=== PATIENT | female | born 1950 | race Caucasian/White ===

== ENCOUNTER 2023-06-16 08:39 | Outpatient (CLI) | payer MEDICARE, MEDICAID, SELFPAY ==
--- NOTE | 2023-06-16 10:04 | P.ANES_ITS ---
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
--- NOTE | 2023-06-16 10:23 | W.ANESCHARGE ---
Anesthesia Charges Start Date/Time Anesthesia Start Date: 06/16/23 Anesthesia Start Time: 09:16 Stop Date/Time Anesthesia Stop Date: 06/16/23 Anesthesia Stop Time: 10:02 Summary Extremes of Age - Over 70 or under 1: MDA
== END 2023-06-16 08:40 | disposition home or self-care (01) ==
PROVIDERS: PCP Family Medicine; Visit Provider Internal Medicine Gastroenterology
DX: C18.9 Malignant neoplasm of colon, unspecified (principal); Z15.09 Genetic susceptibility to other malignant neoplasm; Z85.00 Personal history of malignant neoplasm of unspecified digestive organ; K62.1 Rectal polyp; K64.8 Other hemorrhoids; Z85.038 Personal history of other malignant neoplasm of large intestine; Z98.0 Intestinal bypass and anastomosis status; Z98.890 Other specified postprocedural states
CPT/HCPCS: 00813; 43235; 45380; 45385; 99100; J2704; J3490

== ENCOUNTER 2023-10-15 10:59 | Emergency (ER) | payer MEDICARE, MEDICAID, SELFPAY ==
[2023-10-15 11:01] VITALS: BP 110/72; PULSE 107; RESP 24; TEMP 37.3; O2SAT 96; BMI 23.2
--- NOTE | 2023-10-15 11:38 | XR_ITS ---
INDICATION: BACK PAIN, HISTORY OF CANCER. COMPARISON: NONE. TECHNIQUE: THREE VIEWS LUMBAR SPINE. FINDINGS: CALCIFICATIONS ARE PRESENT WITHIN THE AORTA. POSTOP CHANGES TO THE SOFT TISSUES. NO VERTEBRAL BODY COMPRESSION FRACTURE. DEGENERATE FACET ARTHROPATHY LOWER LUMBAR SPINE WITHOUT SPONDYLOLISTHESIS. NO SUSPICIOUS LESION. DISC SPACES ARE RELATIVELY MAINTAINED. IMPRESSION: NO SUSPICIOUS FINDINGS. NO FRACTURE DEFORMITY. DEGENERATE FACET ARTHROPATHY.
--- NOTE | 2023-10-15 11:42 | ED_ITS ---
HPI - Back Pain/Injury General Date Seen: 10/15/23 Chief Complaint: Back Injury/Pain Stated Complaint: Back spasms Time Seen by Provider: 10/15/23 11:02 Source: patient Mode of arrival: ambulatory Limitations: no limitations History of Present Illness HPI Narrative: Patient is a 73-year-old female presenting to emergency department for low back pain. She states the pain started suddenly last night while she is laying in bed. She is not remember any injuries to the back or any recent heavy lifting or twisting. 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 She has a history of breast and colon cancer both have been treated successfully with no metastasis. The breast cancer was last year and she still on chemo though for preventative means. No previous back pain like this before she states. Says the pain feels like it starts in her mid back and radiates to her bilateral hips. Does not radiate down her legs at all. She denies any associated numbness or weakness. Denies saddle anesthesia, loss of bowel or bladder control, urinary retention. Has not had any fevers. Related Data Home Medications Medication Instructions Recorded Confirmed albuterol sulfate 90 mcg/actuation 1 - 2 puff inhalation 10/15/23 aerosol inhaler (Ventolin HFA) alendronate 70 mg tablet 70 mg PO 10/15/23 amlodipine 5 mg tablet 5 mg PO DAILY 10/15/23 10/15/23 apixaban 5 mg tablet (Eliquis) 5 mg PO BID 10/15/23 10/15/23 atorvastatin 40 mg tablet 40 mg PO DAILY 10/15/23 10/15/23 olanzapine 5 mg tablet 5 mg PO QPM 10/15/23 10/15/23 ondansetron 4 mg disintegrating 4 mg PO Q8H PRN nausea/vomiting 10/15/23 10/15/23 tablet ondansetron HCl 8 mg tablet 8 mg PO 3XD 10/15/23 10/15/23 potassium chloride 20 mEq 20 meq PO DAILY 10/15/23 10/15/23 tablet,extended release(part/cryst) prochlorperazine maleate 10 mg PO 10/15/23 tablet Previous Rx's Medication Instructions Recorded cyclobenzaprine 10 mg tablet 10 mg PO TID PRN muscle spasm #15 10/15/23 tabs Allergies Allergy/AdvReac Type Severity Reaction Status Date / Time No Known Drug Allergies Allergy Verified 10/15/23 11:14 Review of Systems Narrative: Pertinent systems reviewed and were negative unless stated in HPI PFSH PFS Social History Smoking Status: Current every day smoker What tobacco products do you use: cigarettes Second hand tobacco smoke exposure: No How often do you have a drink containing alcohol: never How often do you have six or more drinks on one occasion: Never AUDIT-C Alcohol total score: 0 Non-prescribed substance use: denies use Exam Narrative: Exam Narrative: Const: Well-nourished, Well-developed, in mild distress Eyes: PERRL, no conjunctival injection, and symmetrical lids HENT: Atraumatic external nose and ears. Moist mucous membranes. MSK:Extremities w/o deformity, Normal Active ROM, mildly positive right straight leg test Skin: Warm, Dry. No rashes or lesions. Neuro: Normal Muscle tone, No focal neurological deficits. Psych: Awake, Alert, & Oriented x3. Appropriate mood and affect. Const: Vital Signs, click to edit/add: Vital Signs - 24 hr 10/15/23 11:01 10/15/23 12:36 Temperature 99.1 F Pulse Rate [Pulse Oximeter] 107 H 92 Respiratory Rate 24 Blood Pressure [Le ft Upper Arm] 110/72 126/64 Pulse Oximetry 96 94 Oxygen Delivery Me thod Room Air Room Air Course Vital Signs Vital signs: Initial Vital Signs Temperature 99.1 F 10/15/23 11:01 Temperature Source Temporal Artery Scan 10/15/23 11:01 Pulse Rate 107 H 10/15/23 11:01 Respiratory Rate 10/15/23 11:01 Blood Pressure 110/72 10/15/23 11:01 Blood Pressure Mean 84 10/15/23 11:01 Blood Pressure Position Sitting 10/15/23 11:01 Pulse Oximetry 96 10/15/23 11:01 Oxygen Delivery Method Room Air 10/15/23 11:01 Vital Signs Temperature 99.1 F 10/15/23 11:01 Pulse Rate 107 H 10/15/23 11:01 Respiratory Rate 24 10/15/23 11:01 Blood Pressure 110/72 10/15/23 11:01 Pulse Oximetry 96 10/15/23 11:01 Oxygen Delivery Method Room Air 10/15/23 11:01 Temperature 99.1 F 10/15/23 11:01 Pulse Rate 92 10/15/23 12:36 Respiratory Rate 24 10/15/23 11:01 Blood Pressure 126/64 10/15/23 12:36 Pulse Oximetry 94 10/15/23 12:36 Oxygen Delivery Method Room Air 10/15/23 12:36 Medications Administered Medications: Discontinued Medications Generic Name Dose Route Start Last Admin Trade Name Amberly PRN Reason Stop Dose Admin Cyclobenzaprine HCl 10 mg 10/15/23 11:39 10/15/23 11:50 Cyclobenzaprine Hcl 10 Mg Tablet PO 10/15/23 11:40 10 mg ONCE ONE Administration Ketorolac Tromethamine 30 mg 10/15/23 11:39 10/15/23 11:50 Ketorolac 30 Mg/Ml Inj IM 10/15/23 11:40 30 mg ONCE ONE Administration MDM - Back Pain/Injury MDM Narrative Medical decision making narrative: Patient is a 73-year-old female presenting for back pain. His symptoms seem most likely to be related to a muscle strain with a history of cancer there is some concern for pathologic fracture. This seems unlikely but I will do an x- ray to make sure. She was given Toradol for pain along with Flexeril. After medication she says the pain has gone away completely and she feels wonderful would like to go home. I explained to her that the official x-ray read is not back yet. Told I do not see any obvious fractures but cannot definitively rule anything out until the Obed comes back. She states she understands. Shows looks well and I believe it is okay to discharge her home and I will inform her of the results of the x-ray if there are any concerning findings. She is agreeable to this plan. Will prescribe her Flexeril. X-rays returned after patient left showing no acute abnormalities. Imaging Data Lumbar spine x-ray: Radiologist's impression: NO SUSPICIOUS FINDINGS. NO FRACTURE DEFORMITY. DEGENERATE FACET ARTHROPATHY. Discharge Plan Discharge Clinical Impression: Strain of lumbar region Qualifiers: Encounter type: initial encounter Qualified Code(s): S39.012A - Strain of muscle, fascia and tendon of lower back, initial encounter Patient Disposition: Home, Self-Care Condition: Improved Instructions: Lower Back Exercises (ED) Additional Instructions: Take Flexeril and ibuprofen for pain. Pain persist you continue to need ibuprofen for multiple days follow-up with your primary care provider. Return to emergency department for new worsening symptoms Prescriptions: New cyclobenzaprine 10 mg tablet 10 mg PO TID PRN (Reason: muscle spasm) Qty: 15 0RF No Action atorvastatin 40 mg tablet 40 mg PO DAILY ondansetron HCl 8 mg tablet 8 mg PO 3XD alendronate 70 mg tablet 70 mg PO olanzapine 5 mg tablet 5 mg PO QPM amlodipine 5 mg tablet 5 mg PO DAILY prochlorperazine maleate 10 mg tablet PO potassium chloride 20 mEq tablet,ER particles/crystals 20 meq PO DAILY albuterol sulfate [Ventolin HFA] 90 mcg/actuation HFA aerosol inhaler 1 - 2 puff INHALATION ondansetron 4 mg tablet,disintegrating 4 mg PO Q8H PRN (Reason: nausea/vomiting) Eliquis 5 mg tablet 5 mg PO BID Follow Up/Referrals: Junior Carlton MD [Primary Care Provider] - Stand Alone Forms: [employer] Info Instructions
[2023-10-15] MEDS: KETOROLAC 30 MG/ML inj IM (11:50)
[2023-10-15] MEDS: CYCLOBENZAPRINE HCL 10 MG TABLET PO (11:50)
[2023-10-15 12:36] VITALS: BP 126/64; PULSE 92; O2SAT 94
== END 2023-10-15 12:38 | disposition home or self-care (01) ==
PROVIDERS: Emergency Provider Student in an Organized Health Care Education/Training Program; PCP Family Medicine
DX: S39.012A Strain of muscle, fascia and tendon of lower back, initial encounter (principal)
CPT/HCPCS: 72100; 96372; 99282; 99283; A9270; J1885

== ENCOUNTER 2024-06-04 09:13 | Outpatient (CLI) | payer MEDICARE, MEDICAID, SELFPAY ==
--- OUTSIDE RECORDS SUMMARY | 2024-06-04 09:17 | XMS_ITS | Encounter Summary ---
Author Organization [facility] Address [address] [place] [address] Care Team Providers Care Compounding Assistant Name Role Phone Unavailable Primary Care Provider Unavailabl e Encounter Details Date Type Department Care Team (Latest Contact Info) Description 05/17/2024 7:20 AM CDT - 05/17/2024 11:59 PM CDT Hospital Encounter Department of Laboratory Medicine in [place], [place] [address] [place] [address] [phone] Guicho Collier M.B., B.Ch. 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 Hard 05/25/2023 Exercise Vital Sign Answer Date Recorde d On average, how many days pe r week do you engage in moderate to strenuous exercise (like a brisk walk)? 2 days 05/25/2023 On average, how many minutes do you engage in exercise at this level? 10 min 05/25/2023 Hunger Vital Sign Answer Date Recorded Within the past 12 months, y ou worried that your food would run out before you got the money to buy more. Never true 05/25/20 Within the past 12 months, t he food you bought just didn't last and you didn't have money to get more. Never true 05/25/2023 PRAPARE - Transportation Answer Date Re corded In the past 12 months, has l ack of transportation kept you from medical appointments or from getting medications? No 05/03 In the past 12 months, has l ack of transportation kept you from meetings, work, or from getting things needed for daily living? No 05/25/2023 Nutrition Answer Date Recorded On average, how many serving s of fruits and vegetables do you eat per day (serving size is equal to 1 cup or approximately the size of a tennis ball)? 0-2 05/25/2023 Dental Answer Date Recorded Dental: Regular Dentist No 05/25/20 Employment Answer Date Recorded Employment status Retired 05/25/2023 Housing Stability Answer Date Recorded What is your living situation today? I have a [facility] place to live 05/25/2023 Education Answer Date Recorded What is the highest level of school you have completed or the highest degree you have received? GED or equivalent 05/2022 Sex and Gender Information Value Date Recorded Sex Assigned at Female 08/09/2022 8:38 AM TELLER MANAGER Gender Identity Female 08/09/2022 8:38 AM TELLER MANAGER Sexual Orientation Straight 08/09/2022 8: 38 AM TELLER MANAGER documented as of this encounter Medications at Time of Discharge Medication Sig Dispensed Refills Start Date End Date albuterol 90 mcg/actuation inhaler Inhale 1-2 puffs 4 (four) times a day as needed for wheezing or shortness of breath. 03/26/2023 alendronate (FOSAMAX) 70 mg tablet Take 70 mg by mouth once a week. On Mondays07/02/2022 amLODIPine (NORVASC) 5 mg tablet Take 5 mg by mouth daily. 07/02/2022 anastrozole (Arimidex) 1 mg tabletIndications:Malign ant Neoplasm Of Overlapping Sites Of Right Female Breast (HCC),Medication Therapy Care Home Not Anticoagulant TAKE ONE TABLET BY MOUTH ONCE DAILY (SWALLOW WHOLE WITH A DRINK OF WATER) 90 tablet 1 05/16/2024 apixaban (ELIQUIS) 5 mg tablet Take 5 mg by mouth 2 (two) times a day. 06/12/2022 atorvastatin (LIPITOR) 40 mg tablet Take 40 mg by mouth at bedtime. 05/14/2022 OLANZapine (ZyPREXA) 5 mg tabletIndications:Malign ant Neoplasm Of Overlapping Sites Of Right Female Breast (HCC) Take 1 tablet (5 mg total) by mouth at bedtime as needed (nausea, vomiting). May take dose early if needed. 30 tablet 3 10/05/2023 10/04/2024 ondansetron (ZOFRAN) 8 mg tabletIndications:Malign ant Neoplasm Of Overlapping Sites Of Right Female Breast (HCC) Take 1 tablet (8 mg total) by mouth every 8 (eight) hours as needed for nausea or vomiting (unrelieved by prochlorperazine). 30 tablet 3 10/05/2023 10/04/2024 ondansetron ODT (ZOFRAN-ODT) 4 mg disintegrating tablet DISSOLVE ONE TABLET BY MOUTH EVERY 8 HOURS NEEDED FOR NAUSEA OR VOMITING 08/05/2023 potassium chloride (KLOR-CON M/KDUR) 20 mEq ER tablet daily with breakfast. 12/20/2023 prochlorperazine (COMPAZINE) 10 mg tabletIndications:Malign ant Neoplasm Of Overlapping Sites Of Right Female Breast (HCC) Take 1 tablet (10 mg total) by mouth every 6 (six) hours as needed for nausea or vomiting. 30 tablet 3 10/05/2023 10/04/2024 documented as of this encounter Plan of Treatment Upcoming Encounters Date Type Department Care Team (Late st Contact Info) Description 08/09/2024 10:00 AM TELLER MANAGER Appointment Department of Laboratory Medicine in [address] [phone] Guicho Collier M.B., B.Ch. [facility] [place] [phone] 08/09/2024 11:00 AM TELLER MANAGER Ancillary Procedure Department of Radiology, [facility], in [place], [place] [address] [place] [phone] Guicho Collier M.B., B.Ch. [address] [place] [address] [phone] 08/09/2024 12:00 PM TELLER MANAGER Ancillary Procedure Department of Radiology in the Breast Clinic, [facility] in [place], [place] [address] [place] [phone] Guicho Collier M.B., B.Ch. [address] [place] [address] [phone] 08/16/2024 11:20 AM TELLER MANAGER Office Visit Department of Oncology in [address] [phone] Guicho Collier M.B., B.Ch. 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 Higher concentrations of biotin may be found in multivitamins, hair/nail supplements, and workout supplements. If the result does not match clinical observations, repeat testing after patient refrains from the use of supplements for at least 12 hours. ----REFERENCE VALUE---- Reference values have not been established for patients who are greater than 69 years of age ----ADDITIONAL INFORMATION---- The testing method is an electrochemiluminescence assay manufactured by [employer] and performed on the Carey system. Values obtained with different assay methods or kits may be different and cannot be used interchangeably. Test results cannot be interpreted as absolute evidence for the presence or absence of malignant disease. Blood (Blood, Venous) 05/17/2024 7:37 AM CDT 05/17/2024 7:45 AM CDT Guicho Alfonso, B.Ch. LAB BLOOD ADD-ON [facility] [address] [place] [address], [facility] [place] [address] * CBC with Differential, Blood (05/17/2024 7:37 AM CDT) Hemoglobin 13.9 11.6 - 15.0 g/dL 05/17/2024 7:49 AM CDT [facility] Hematocrit 42.2 35.5 - 44.9 % 05/17/2024 7:49 AM CDT [facility] Erythrocytes 4.59 3.92 - 5.13 x10(12)/L 05/17/2024 7:49 AM CDT [facility] MCV 91.9 78.2 - 97.9 fL 05/17/2024 7:49 AM CDT [facility] RBC Distrib Width 15.0 12.2 - 16.1 % 05/17/2024 7:49 AM CDT [facility] Platelet Count 281 157 - 371 x10(9)/L 05/17/2024 7:49 AM CDT [facility] Leukocytes 6.8 3.4 - 9.6 x10(9)/L 05/17/2024 7:49 AM CDT [facility] Neutrophils 3.85 1.56 - 6.45 x10(9)/L 05/17/2024 7:49 AM CDT [facility] Lymphocytes 1.98 0.95 - 3.07 x10(9)/L 05/17/2024 7:49 AM CDT [facility] Monocytes 0.68 0.26 - 0.81 x10(9)/L 05/17/2024 7:49 AM CDT [facility] Eosinophils 0.23 0.03 - 0.48 x10(9)/L 05/17/2024 7:49 AM CDT [facility] Basophils 0.06 0.01 - 0.08 x10(9)/L 05/17/2024 7:49 AM CDT [facility] Blood (Blood, Venous) 05/17/2024 7:37 AM CDT 05/17/2024 7:45 AM CDT Guicho Alfonso B.Ch. LAB BLOOD ADD-ON [facility] [address] [place] [address], [facility] MK[facility] in [place] [address] [place] [address] documented in this encounter Visit Diagnoses Diagnosis Medication Therapy Ccnp Not Anticoagulant Malignant Neoplasm Of Overlapping Sites Of Right Female Breast (HCC) Malignant Neoplasm Of Colon (HCC) documented in this encounter
--- OUTSIDE RECORDS SUMMARY | 2024-06-04 09:17 | XMS_ITS | Encounter Summary ---
Author Organization [facility] Address [address] [place] [address] Care Team Providers Care Election Watcher Name Role Phone Unavailable Primary Care Provider Unavailabl e Reason for Referral * Outpatient (Routine) - Authorized Specialty Diagnoses / Procedures Referred By Contac t Referred To Contact Oncology Diagnoses Medication Therapy [employer] Not Anticoagulant Malignant Neoplasm Of Overlapping Sites Of Right Female Breast (HCC) Malignant Neoplasm Of Colon (HCC) Dependence Nicotine Screening Mammogram Breast Cancer Guicho Collier M.B., B.Ch. [address] [place] [phone] [facility] Referral ID Status Reason Start Date Expiration Date V isits Requested Visits Authorized [id number] Authorized 05/17/2024 11/16/2025 1 1 * MRI/CAT/PET Scan (Routine) - Authorized Specialty Diagnoses / Procedures Referred By Contac t Referred To Contact Radiology Diagnoses Medication Therapy [employer] Not Anticoagulant Malignant Neoplasm Of Overlapping Sites Of Right Female Breast (HCC) Malignant Neoplasm Of Colon (HCC) Dependence Nicotine Procedures CT Abdomen Pelvis with IV Contrast Guicho Collier M.B., B.Ch. [address] [place] [phone] [facility] Referral ID Status Reason Start Date Expiration Date V isits Requested Visits Authorized [id number] Authorized 05/17/2024 05/17/2025 1 1 * MRI/CAT/PET Scan (Routine) - Authorized Specialty Diagnoses / Procedures Referred By Ted t Referred To Contact Radiology Diagnoses Medication Therapy [employer] Not Anticoagulant Malignant Neoplasm Of Overlapping Sites Of Right Female Breast (HCC) Malignant Neoplasm Of Colon (HCC) Dependence Nicotine Procedures CT Chest with IV Contrast Guicho Collier M.B., B.Ch. [address] [place] [phone] [facility] Referral ID Status Reason Start Date Expiration Date V isits Requested Visits Authorized [id number] Authorized 05/17/2024 05/17/2025 1 1 * Outpatient (Routine) - Authorized Specialty Diagnoses / Procedures Referred By Ted tai Referred To Contact Diagnoses Medication Therapy [facility] Not Anticoagulant Malignant Neoplasm Of Overlapping Sites Of Right Female Breast (HCC) Malignant Neoplasm Of Colon (HCC) Dependence Nicotine Screening Mammogram Breast Cancer Procedures BI Breast Screening Bilateral with Tomosynthesis Guicho Collier M.B., B.Ch. [address] [place] [phone] [facility] Referral ID Status Reason Start Date Expiration Date V isits Requested Visits Authorized [id number] Authorized 05/17/2024 05/17/2025 1 1 Reason for Visit * Reason Comments Breast Cancer Fu, lab * Outpatient (Routine) - Closed Specialty Diagnoses / Procedures Referred By Ted tai Referred To Contact Oncology Diagnoses Medication Therapy [employer] Access[employer] Not Anticoagulant Malignant Neoplasm Of Overlapping Sites Of Right Female Breast (HCC) Malignant Neoplasm Of Colon (HCC) Guicho Collier M.B., B.Ch. [address] [place] [phone] [facility] Referral ID Status Reason Start Date Expiration Date Visits Re quested Visits Authorized [id number] Closed 02/06/2024 08/07/2025 1 1 Encounter Details Date Type Department Care Team (Late st Contact Info) Description 05/17/2024 8:20 AM CDT Office Visit Department of Oncology in [place], [place] [address] [place] [phone] Guicho Collier M.B., B.Ch. [address] [place] [phone] Malignant Neoplasm Of Colon (HCC) (Primary Dx); Medication Therapy [facility] Not Anticoagulant; Malignant Neoplasm Of Overlapping Sites Of Right Female Breast (HCC); Nicotine Dependence ; Screening Mammogram Breast Cancer; Cancer Colon Nonpolyposis Hereditary Family History; High Risk Medication Social History Tobacco Use Types Packs/Day Years Used Date Smoking Tobacco: Every Day Cigarettes 0.3 0.8 Started: 2023 Passive Smoke Exposure: Current Smokeless Tobacco: Never Tobacco Cessation:Ready to Q uit: Not Asked; Counseling Given: Not Answered Comments:Son in law smokes outside, around 6 daily Alcohol Use Standard Drinks/Week [...] money to buy more. Never true 05/25/20 23 Within the past 12 months, t he [...] your living situation today? I have a [facility] [place] place to live 05/25/2023 Education Answer Date Recorded What is the highest level of school you have completed or the highest degree you have received? GED or equivalent 05/2022 Sex and Gender Information Value Date Recorded Sex Assigned at Female 08/09/2022 8:38 AM ELEPHANT KEEPER Gender Identity Female 08/09/2022 8:38 AM ELEPHANT KEEPER Sexual Orientation Straight 08/09/2022 8: 38 AM ELEPHANT KEEPER documented as of this encounter Last Filed Vital Signs Vital Sign Reading Time Taken Comments Blood Pressure 130/71 05/17/2024 7:55 AM CDT Pulse 78 05/17/2024 7:55 AM CDT Temperature 36.3 ??C (97.3 ??F) 05/17/2024 7:55 AM CD T Respiratory Rate 18 05/17/2024 7:55 AM CDT Oxygen Saturation 96% 05/17/2024 7:55 AM CDT ra Inhaled Oxygen Concentration - - Weight 54.9 kg (121 lb 0.5 oz) 05/17/2024 7:55 A M CDT Height - - Body Mass Index 20.76 08/12/2023 10:45 PM ELEPHANT KEEPER documented in this encounter Patient Instructions * Patient Instructions* Guicho Collier M.B., B.Ch. - 05/17/2024 8:20 AM CDT See you back in three months. We will obtain a mammogram and CT next visit. Colonoscopy at [facility] in June documented in this encounter Progress Notes * Guicho Collier M.B., B.Ch. - 05/17/2024 8:20 AM CDT ONCOLOGY PROGRESS NOTE Primary Care Provider Dr. Junior Carlton, at [facility] Oncologist Li Sumner., B.Ch. Reason for Visit Valentine Hernandez is a 74 y.o. 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 Tobacco smoking, half a pack per day for 35 years. Family history positive for sister with lung cancer, mother with pancreatic cancer, and father withpancreatic cancer. Oncology History 06/22/2021 Admission at [facility] in [place] with intermittent abdominal pain and anorexia. CT abdomen and pelvis at [facility] showed distal ileum wall thickening consistent with nonspecific terminal ileitis, small bowel proximal to terminal ileum is fluid filled but not dilated which may represent ileus or early small bowel obstruction. Colonoscopy was ordered, however the patient was unable to complete prep and became ill, and presented to ER. She was found to be obstructed, and had an urgent surgical intervention. 06/28/2021 Right hemicolectomy. Surgery was complicated with small bowel perforation. Pathology showed invasive colonic adenocarcinoma, greatest dimension 6 cm, high-grade, margins were negative, LVIinvasion identified, PMI identified, lymph nodes were positive for adenocarcinoma. Pathological stage pT3pN1 Mx consistent with stage III disease. MMR proficient by IHC. 08/10/2021 C1 oxaliplatin. Patient experienced grade 2 hypersensitivity reaction versus esophageal spasm that resolved with diphenhydramine, methylprednisolone, and lorazepam. 08/11/2021 CEA at 6.6 09/03/2021 C2 oxaliplatin. Patient experienced grade 2 hypersensitivity reaction versus esophageal spasm that resolved with diphenhydramine and lorazepam. 09/21/2021 CEA 21.7. Reported started smoking. 09/24/2021 C3D1 capecitabine. Oxaliplatin was discontinued. 10/04/2021 CEA 30.8. 10/17/2021 C4 capecitabine 11/02/2021 CEA 17.8. 11/05/2021 through 12/17/2021 C5 through C7 capecitabine 12/25/2021 CEA at 12.7 01/02/2022 CT chest abdomen pelvis showed stable bilateral pulmonary nodules and focal nodular thickening in the splenic flexure measuring 1.8 x 1.6 cm, recommended correlation with colonoscopy. 01/07/2022 C8 capecitabine 03/29/2022 Colonoscopy showed two polyps in rectum and one polyp in colon, biopsied. Pathology reported tubular adenoma in 3 polyps, and one was greater in one centimeter in size. 04/24/2022 Patient's last Oncology visit at [place], [place]. CBC showed osbqtyhzbn30.1, platelets 347, WBC 8.9. CMP unremarkable. CEA 14.1. 09/13/[address] chest abdomen and pelvis showed emphysematous changes throughout both lungs. No pulmonary mass or nodules. CT is otherwise unremarkable. 04/30/2023 CEA at 16.3 05/02/2023 CT chest abdomen and pelvis with IV contrast for surveillance on colon cancer incidentally revealed an enhancing irregular shaped nodular density in the posterior lateral right mid breast up to 2.9 cm, suspicious for right breast cancer; no metastatic disease in chest, abdomen, or pelvis, however there are multiple bilateral subcentimeter noncalcified pulmonary nodules that are indeterminate and stable from before. 05/06/2023 Diagnostic mammogram bilaterally showed irregularly marginated high density mass within the lateral right breast. US showed irregularly marginated vascular hypoechoic mass 9' position 4 cmfrom the nipple measuring up to 2.4 cm with extension into adjacent duct near the periareolar region with intraductal lesion; a separate ill-defined hypoechoic nodule demonstrating vascularity also demonstrated near 8' location 1 cm from the nipple; no pathologic axillary lymphadenopathy identified; left breast mammography unremarkable. 05/14/2023 US-guided needle biopsy from the 9 o'clock lesion, and pathology showed invasive mammarycarcinoma, favor lobular carcinoma, no DCIS, no angiolymphatic invasion; ER positive strong 91-100%, CT negative, HER2 1+ by IHC, Ki67 at 17%. 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 06/16/2023 Colonoscopy (at [facility]) was performed and showed two sessile polyps in the distal rectum, they were 1-2 mm in size, and otherwise unremarkable colonoscopy; pathology reported the two rectal polyps were hyperplastic polyp, and the polyp 3 cm from the rectum showed a tubulovillous adenoma which is an advanced adenoma. EGD was performed and was unremarkable, no biopsies were obtained. 08/05/2023 Mastectomy, breast axillary tail, and removal of six lymph node including one sentinel. Pathology reported invasive lobular carcinoma, pleomorphic variant, grade 2, measuring up to 5.8 cm,all margins were negative however measures less than 1 mm to the posterior inked margin, right axillary sentinel lymph node positive for isolated tumor cells (pT3 pN0 (i+)), ER positive, 91-100%, CT negative, HER2 1+ by IHC, Ki-67 17%. Recurrence score through Oncotype Dx score is at 29. 09/10/2023 CEA at 11.9 10/09/2023 Adjuvant docetaxel 75 mg/m2 + cyclophosphamide 600 mg/m2, 21-day cycle. Completed 4 cycles on 12/18/2023. 01/01/2024 Consult with Radiation Oncologist: Agreed with adjuvant radiation therapy. 01/14/2024 Started adjuvant anastrozole 01/12/2024 Started adjuvant radiation. Received 4800 cGy over 15 fractions. Completed on 02/03/2023. Interval History Patient is presenting today for follow-up on clinical status, review labs, and discuss plan. Review of Systems Ten point review of system was reviewed today 05/17/24 and was negative, except as otherwise indicated. History Review The following portions of the patient's history were reviewed 05/17/24: allergies, social history, surgical history, current medications, family history, problem list and medical history Vital Signs Vitals: 05/17/24 0755 BP: 130/71 Pulse: 78 Resp: 18 Temp: 36.3 ??C SpO2: 96% Performance Status ECOG : 0-1 Physical Exam Constitutional Appearance: Normal appearance. She is not ill-appearing. HENT Head: Normocephalic. Nose: Nose normal. No congestion. Mouth/Throat: Mouth: Mucous membranes are moist. Pharynx: No oropharyngeal exudate. Eyes General: No scleral icterus. Pupils: Pupils are equal, round, and reactive to light. Cardiovascular Rate and Rhythm: Normal rate and regular rhythm. Pulses: Normal pulses. Pulmonary Effort: Pulmonary effort is normal. No respiratory distress. Abdominal General: Abdomen is flat. There is no distension. Palpations: There is no mass. Musculoskeletal General: No swelling. Normal range of motion. Cervical back: Normal range of motion. No rigidity. Right lower leg: No edema. Left lower leg: No edema. Skin General: Skin is warm. Capillary Refill: Capillary refill takes less than 2 seconds. Coloration: Skin is not jaundiced or pale. Neurological General: No focal deficit present. Mental Status: She is alert and oriented to person, place, and time. Psychiatric Mood and Affect: Mood normal. Behavior: Behavior normal. Laboratory Data Reviewed 05/17/24 Radiology Data Reviewed 05/17/24 Assessment and Plan Valentine Hernandez is a 74 y.o. female with clinical stage IIA invasive lobular carcinoma of the right breast, ER positive CT negative, HER2 low, on adjuvant anastrozole She presented with bowel obstruction in 06/2021, underwent right hemicolectomy, and pathology showed adenocarcinoma in the right colon, MMR proficient, pT3 pN1. She completed adjuvant chemotherapy in12/[address] chest abdomen and pelvis on 04/2023 for her colon cancer incidentally revealed a 2.9 cm lesion in the posterior lateral right breast suspicious for breast cancer. Diagnostic mammogram showed mass in the lateral right breast. US showed irregularly marginated vascular hypoechoic mass 9 o'clock position measuring up to 2.4 cm with extension into adjacent duct near the periareolar region with intraductal lesion; a separate ill-defined hypoechoic nodule demonstrating vascularity demonstrated near 8 o'clock location, no pathologic axillary lymphadenopathy identified. Biopsy was obtained from the 9' lesion, and pathology showed invasive mammary carcinoma favor lobular carcinoma, ER positive 91-100%, CT negative, HER2 1+ by IHC, Ki67 at 17%. Germline mutation genetic testing negative. She underwent right mastectomy and left lymph node removal including one sentinel on 08/05/2023, and pathology reported invasive lobular carcinoma, measuring up to 5.8 cm, all margins were negative, right axillary sentinel lymph node positive for isolated tumor cells (pT3 pN0 (i+)), ER positive, 91-100%, CT negative, HER2 1+ by IHC, Ki-67 at 17%. Recurrence score through Oncotype Dx was at 29. She completed four cycles of adjuvant docetaxel and cyclophosphamide on 12/18/2023. She started anastrozole in 12/2023. She completed adjuvant radiation on 02/04/2024. The patient is feeling well overall and does not have any new complaints. Her CBC is normal. Her CEA is high at 24. -Continue adjuvant anastrozole. Aim to complete at least 5 years through . -Monitor: Screening left mammogram annually, next due in 06/2024. Annual DEXA scan. -In regards to her colon cancer, continue surveillance: H&P and CEA every 6 months for a total of 5 years (through 11/2026). CT Chest/abdominal/pelvic every 6-12 months (category 2B for frequency<12 mo) from date of surgery for a total of 5 years (through 06/2026). Therefore continue to monitor CEA which has been elevated and previously was attributed to smoking. She had an advanced adenoma (one rectal polyp was >1 cm) thus repeat colonoscopy within a year was indicated, and colonoscopy is scheduled at [facility] [facility] in 06/[address]24. O[address] chest abdomen and pelvis annually, and ordered for the next visit. -In regards to cullen syndrome, Colonoscopy every 1-2 years, Screening for endometrial cancer: Endometrial biopsy yearly, Risk-reducing surgery (hysterectomy and BSO). Consider UA annually starting age 30-35. Daily aspirin 81 mg daily. Age-appropriate cancer screening -Patient was strongly advised to quit smoking. I have discussed risk reduction surgery with the patient today, but she would like to defer that decision. -Follow up: 3 months with repeat mammogram, CEA, and CT. Advance Care Planning Health Care Power of [employer] St[employer] Machine Operator: Discussed with Valentine Hernandez 2. Treatment Goals: Curative 3. Additional lines of Therapy: Radiation and hormone therapy 4. Prognosis: Median Survival: Hopefully comparable to general population 5. Patient Personal Goals and understanding of illness: Improve survival maintain quality of life Patient Education No apparent learning barriers were identified. Explained diagnosis and treatment plan; patient expressed understanding of the content and agreement with plan. Patient was encouraged to keep us informed in case they develop any new symptoms in the interval period. Administrative and Billing I personally spent more than 25 minutes in care of the patient today. This time includes more than 50% both face to face and non-face to face time. WAYNE Sumner documented in this encounter Plan of Treatment Upcoming Encounters Date Type Department Care Team (Late st Contact Info) Description 08/09/2024 10:00 AM ELEPHANT KEEPER Appointment Department of Laboratory Medicine in [address] [phone] Guicho Collier M.B., B.Ch. [address] [place] [phone] 08/09/2024 11:00 AM ELEPHANT KEEPER Ancillary Procedure Department of Radiology, [facility], in [place], [place] [address] [facility] [address], [place] [phone] Guicho Collier M.B., B.Ch. [address] [place] [phone] 08/09/2024 12:00 PM ELEPHANT KEEPER Ancillary Procedure Department of Radiology in the Breast Clinic, [facility] in [address] [phone] Guicho Collier M.B., B.Ch. [address] [place] [phone] 08/16/2024 11:20 AM ELEPHANT KEEPER Office Visit Department of Oncology in [address] [phone] Guicho Collier M.B., B.Ch. [address] [place] [phone] Scheduled Orders Name Type Priority Associated Diagnoses Order Schedule BI Breast Screening Bilateral with Tomosynthesis Imaging RAD - Routine (most inpatients and all outpatients) Medication Therapy [employer] Accessory Installer Not Anticoagulant Malignant Neoplasm Of Overlapping Sites Of Right Female Breast (HCC) Malignant Neoplasm Of Colon (HCC) Nicotine Dependence Screening Mammogram Breast Cancer Expected: 08/16/2024, Expires: 08/16/2025 CT Chest with IV Contrast Imaging RAD - Routine (most inpatients and all outpatients) Medication Therapy [facility] Not Anticoagulant Malignant Neoplasm Of Overlapping Sites Of Right Female Breast (HCC) Malignant Neoplasm Of Colon (HCC) Nicotine Dependence Expected: 08/16/2024, Expires: 08/16/2025 CT Abdomen Pelvis with IV Contrast Imaging RAD - Routine (most inpatients and all outpatients) Medication Therapy [facility] Not Anticoagulant Malignant Neoplasm Of Overlapping Sites Of Right Female Breast (HCC) Malignant Neoplasm Of Colon (HCC) Nicotine Dependence Expected: 08/16/2024, Expires: 08/16/2025 Creatinine with Estimated GFR Lab Routine Medication Therapy [employer] Not Anticoagulant Malignant Neoplasm Of Overlapping Sites Of Right Female Breast (HCC) Malignant Neoplasm Of Colon (HCC) Nicotine Dependence 1 Occurrences starting 05/17/2024 until 08/16/2025 CEA (Carcinoembryonic Antigen) Lab Routine Medication Therapy [employer] Access[employer] Install[employer] Not Anticoagulant Malignant Neoplasm Of Overlapping Sites Of Right Female Breast (HCC) Malignant Neoplasm Of Colon (HCC) Nicotine Dependence Screening Mammogram Breast Cancer Expected: 08/16/2024, Expires: 08/16/2025 Scheduled Referrals Name Type Priority Associated Diagnoses Orde r Schedule Oncology office visit (clinic) Outpatient Referral Routine Medication Therapy [facility] Not Anticoagulant Malignant Neoplasm Of Overlapping Sites Of Right Female Breast (HCC) Malignant Neoplasm Of Colon (HCC) Nicotine Dependence Screening Mammogram Breast Cancer Expected: 08/16/2024, Expires: 08/16/2025 documented as of this encounter Visit Diagnoses Diagnosis Malignant Neoplasm Of Colon (HCC)- Primary Medication Therapy Automotive 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
--- OUTSIDE RECORDS SUMMARY | 2024-06-04 09:17 | XMS_ITS ---
Author Organization [facility] Address [address] [place] [id number] Care Team Providers Care Public Relations Director Name Role Phone Unavailable Primary Care Provider Unavailabl e Active Problems Problem Noted Date Diagnosed Date Medication Therapy [facility] Not Anticoagulant 0 09/29/2023 Sepsis 08/12/2023 Genetic Susceptibility To Malignant Neoplasm Of Endometrium 06/03/2023 Overview (06/03/2023): Positive germline testing for PMS2 variant c.[id number] [id number]* Malignant Neoplasm Of Overla pping Sites Of Right Female Breast 05/16/2023 Cancer Staging:Pathologic:Stage IIB(pT3, pN0(i+)(sn), cM0, G2, ER+, MD-, HER2-) - Signed by Aj Blue MPAS, P.A.-C., M.S. on 09/17/2023 Current Oncology Plans No current plan information found. Past Plans Hematology / Oncology Treatment 1 Plan Name Start Date Discontinue Date Treatment Medications Discontinue Reason Plan Provider Cycles TC ( DOCEtaxel / cycloPHOSphamide ) 4 12/19/2023 cycloPHOSphamide (Cytoxan)cycloPHOS phamide (Cytoxan) IVPB in 250 mL (1 g vial) (Cytoxan)DOCEtaxel (Taxotere)DOCEtaxe L (Taxotere) IVPB in 250 mL (Taxotere) Therapy Complete Guicho Collier M.B., B.Ch. 4 of 4 cycles started Radiation Treatments * Plan Last Treated On Days Fractions Treated Prescribed Fraction Dose Prescribed Total Dose [id number] 02/04/2024 23 15 of 15 320 cGy 4,800 cGy Reference Point Last Treated On Elapsed Days Session Dose Total Dose [id number] 02/04/2024 23 320 cGy 4,800 cGy
--- OUTSIDE RECORDS SUMMARY | 2024-06-04 09:17 | XMS_ITS | Encounter Summary ---
Author Organization [facility] Address [address] [place] [address] Care Team Providers Care Divorce Attorney Name Role Phone Unavailable Primary Care Provider Unavailabl e Reason for Referral * Outpatient (Routine) - Authorized Specialty Diagnoses / Procedures Referred By Ted tai Referred To Contact Clinical Genomics Diagnoses Malignant Neoplasm Of Overlapping Sites Of Right Female Breast (HCC) Malignant Neoplasm Of Colon (HCC) Cancer Colon Nonpolyposis Hereditary Family History High Risk Medication Guicho Collier M.B., B.Ch. [facility] [place] [phone] [facility] Referral ID Status Reason Start Date Expiration Date V isits Requested Visits Authorized [id number] Authorized 05/18/2024 11/17/2025 1 1 Encounter Details Date Type Department Care Team (Late st Contact Info) Description 05/18/2024 Orders Only Department of Oncology in [address] [place] [phone] Guicho Collier M.B., B.Ch. [address] [place] [phone] Malignant Neoplasm Of Overlapping Sites Of Right Female Breast (HCC) (Primary Dx); Malignant Neoplasm Of Colon (HCC); Cancer Colon Nonpolyposis Hereditary Family History; High [...] your living situation today? I have a [facility] place to live 05/25/2023 Education Answer Date Recorded What is the highest level of school you have completed or the highest degree you have received? GED or equivalent 05/2022 Sex and Gender Information Value Date Recorded Sex Assigned at Female 08/09/2022 8:38 AM SENIOR TREASURY ANALYST Gender Identity Female 08/09/2022 8:38 AM SENIOR TREASURY ANALYST Sexual Orientation Straight 08/09/2022 8: 38 AM SENIOR TREASURY ANALYST documented as of this encounter Plan of Treatment Upcoming Encounters Date Type Department Care Team (Late st Contact Info) Description 08/09/2024 10:00 AM SENIOR TREASURY ANALYST Appointment Department of Laboratory Medicine in [address] [phone] Guicho Collier M.B., B.Ch. [address] [place] [phone] 08/09/2024 11:00 AM SENIOR TREASURY ANALYST Ancillary Procedure Department of Radiology, [facility], in [place], [place] [address] [facility] [address] [place] [phone] Guicho Collier M.B., B.Ch. [address] [place] [phone] 08/09/2024 12:00 PM SENIOR TREASURY ANALYST Ancillary Procedure Department of Radiology in the Breast Clinic, [facility] in [place], [place] [address] [place] [phone] Guicho Collier M.B., B.Ch. [address] [place] [phone] 08/16/2024 11:20 AM SENIOR TREASURY ANALYST Office Visit Department of Oncology in [address] [phone] Guicho Collier M.B., B.Ch. [address] [place] [phone] Scheduled Referrals Name Type Priority Associated Diagnoses Orde r Schedule Clinical Genomics - Hereditary cancer consult (clinic) Outpatient Referral Routine Malignant Neoplasm Of Overlapping Sites Of Right Female Breast (HCC) Malignant Neoplasm Of Colon (HCC) Cancer Colon Nonpolyposis Hereditary Family History High Risk Medication Expected: 05/18/2024, Expires: 08/17/2025 documented as of this encounter Visit Diagnoses Diagnosis Malignant Neoplasm Of Overlapping Sites Of Right Female Breast (HCC)- Primary Malignant Neoplasm Of Colon (HCC) Cancer Colon Nonpolyposis Hereditary Family History High Risk Medication documented in this encounter
--- OUTSIDE RECORDS SUMMARY | 2024-06-04 09:17 | XMS_ITS | Clinical Summary ---
Author Organization [facility] Address [address] [place] [address] Care Team Providers Care Procurement Representative Name Role Phone Unavailable Primary Care Provider Unavailabl e Source Comments Patient records contain information from all sites at [facility]. For routine questions regarding patient records, call [phone] during business hours, M-F 8:00 AM - 5:00 PM Central Time. Record requests for emergency care only can be directed to [phone] at any time.[facility] Allergies No known active allergies Medications Medication Sig Dispensed Refills Start Date End Date Status alendronate (FOSAMAX) 70 mg tablet Take 70 mg by mouth once a week. On Mondays 2 Active amLODIPine (NORVASC) 5 mg tablet Take 5 mg by mouth daily. 2 Active apixaban (ELIQUIS) 5 mg tablet Take 5 mg by mouth 2 (two) times a day. 2 Active atorvastatin (LIPITOR) 40 mg tablet Take 40 mg by mouth at bedtime. 2 Active albuterol 90 mcg/actuation inhaler Inhale 1-2 puffs 4 (four) times a day as needed for wheezing or shortness of breath. 3 Active prochlorperazine (COMPAZINE) 10 mg tabletIndications:M alignant Neoplasm Of Overlapping Sites Of Right Female Breast (HCC) Take 1 tablet (10 mg total) by mouth every 6 (six) hours as needed for nausea or vomiting. 30 tablet 3 4 10/04/19 25 Active Additional Information Patient not taking.Reported on 01/21/2024 ondansetron (ZOFRAN) 8 mg tabletIndications:M alignant Neoplasm Of Overlapping Sites Of Right Female Breast (HCC) Take 1 tablet (8 mg total) by mouth every 8 (eight) hours as needed for nausea or vomiting (unrelieved by prochlorperazine ). 30 tablet 3 4 10/04/19 25 Active Additional Information Patient not taking.Reported on 01/21/2024 OLANZapine (ZyPREXA) 5 mg tabletIndications:M alignant Neoplasm Of Overlapping Sites Of Right Female Breast (HCC) Take 1 tablet (5 mg total) by mouth at bedtime as needed (nausea, vomiting). May take dose early if needed. 30 tablet 3 4 10/04/19 25 Active Additional Information Patient not taking.Reported on 01/21/2024 ondansetron ODT (ZOFRAN-ODT) 4 mg disintegrating tablet DISSOLVE ONE TABLET BY MOUTH EVERY 8 HOURS NEEDED FOR NAUSEA OR VOMITING 3 Active potassium chloride (KLOR-CON M/KDUR) 20 mEq ER tablet daily with breakfast. 4 Active anastrozole (Arimidex) 1 mg tabletIndications:M alignant Neoplasm Of Overlapping Sites Of Right Female Breast (HCC),Medication Therapy Half-Way Not Anticoagulant TAKE ONE TABLET BY MOUTH ONCE DAILY (SWALLOW WHOLE WITH A DRINK OF WATER) 90 tablet 1 4 Active anastrozole (ARIMIDEX) 1 mg tabletIndications:M alignant Neoplasm Of Overlapping Sites Of Right Female Breast (HCC),Medication Therapy Half-Way Not Anticoagulant Take 1 tablet (1 mg total) by mouth daily. Swallow whole with a drink of water. 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 on 09/17/2023 Encounters Date Type Department Care Team Description 05/21/2024 10:30 AM CDT Virtual Visit Department of Medical Genetics in [place], [place] [address] [place] [phone] Guicho Collier M.B., B.Ch. Kari Cowan Malignant Neoplasm Of Overlapping Sites Of Right Female Breast (HCC); Malignant Neoplasm Of Colon (HCC); Cancer Colon Nonpolyposis Hereditary Family History; High Risk Medication 05/19/2024 Clinical Communication Department of Medical Genetics in [place], [place] [address] [place] [phone] Prescheduling, Provider 05/18/2024 Clinical Communication Department of Oncology in [address] [phone] Guicho Collier M.B., B.Ch. 05/18/2024 Orders Only Department of Oncology in [address] [place] [phone] Guicho Collier M.B., B.Ch. Malignant Neoplasm Of Overlapping Sites Of Right Female Breast (HCC) (Primary Dx); Malignant Neoplasm Of Colon (HCC); Cancer Colon Nonpolyposis Hereditary Family History; High Risk Medication 05/17/2024 8:20 AM CDT Office Visit Department of Oncology in [address] [phone] Guicho Collier M.B., B.Ch. 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 Medication Therapy Half-Way Not Anticoagulant; Malignant Neoplasm Of Overlapping Sites Of Right Female Breast (HCC); Malignant Neoplasm Of Colon (HCC) Discharge Disposition: Home or Self Care 05/16/2024 Refill Department of Oncology in [address] [phone] Guicho Collier M.B., B.Ch. Med Refill from Last 3 Months Family History Medical History Relation Name Comments Pancreatic cancer Father d. Pancreatic cancer Mother Lung cancer Sister stage 4 Relation Name Status Comments Brother d. [place] Daughter 1 [place] Alive Father BRCA1 no t tested Daughter 2 Niru Alive Daughter 3 [place] Alive A/w Father (Age 70) Father's Brother 1 Alive little co ntact Father's Brother 2 Alive little co ntact Father's Brother 3 Alive little co ntact Grandchild 1 Alive Grandchild 2 Alive Grandchild 3 Alive Grandchild 4 Alive Grandchild 5 Alive Grandchild 6 Alive Grandchild 7 Alive Grandchild 8 Alive Grandchild 9 Alive Grandchild 10 Alive Grandchild 11 Alive Grandchild 12 Alive Grandchild 13 Alive Grandchild 14 Alive Half-Sister 1 Alive a/w Half-Sister 2 Alive a/W Half-Sister 3 Alive a/W Maternal Grandfather (Age 70s) d . stroke Maternal Grandmother (Age 80s) b lood disorder Mother (Age 71) Niece/Nephew Alive 5 Paternal Grandfather Lmited information known on this side of family Paternal Grandmother Sister Alive Son 1 Alive [place] Son 2 Alive AJ moe Son 3 Dario Alive A/W Son 4 Mike Alive A/W Social History Tobacco Use Types Packs/Day Years Used Date Smoking Tobacco: Every Day Cigarettes 0.3 0.8 Started: 2023 Passive Smoke Exposure: Current Smokeless Tobacco: Never Tobacco Cessation:Ready to Q uit: Not Asked; Counseling Given: Not Answered Comments:Son in law smokes outside, around 6 daily Alcohol Use Standard Drinks/Week Comments Yes 2 (1 standard drink = 0.6 oz pur [...] your living situation today? I have a [facility] place to live 05/25/2023 Education Answer Date Recorded What is the highest level of school you have completed or the highest degree you have received? GED or equivalent 05/2022 Sex and Gender Information Value Date Recorded Sex Assigned at Female 08/09/2022 8:38 AM PHARMACY MANAGER Gender Identity Female 08/09/2022 8:38 AM PHARMACY MANAGER Sexual Orientation Straight 08/09/2022 8: 38 AM PHARMACY MANAGER Last Filed Vital Signs Vital Sign Reading [...] oz) 05/17/2024 7:55 A M CDT Height 162.6 cm (5' 4.02) 08/12/2023 10:45 PM Lorna PARRY Body Mass Index 20.76 08/12/2023 10:45 PM PHARMACY MANAGER Plan of Treatment Upcoming Encounters Date Type Department Care Team (Late st Contact Info) Description 08/09/2024 10:00 AM PHARMACY MANAGER Appointment Department of Laboratory Medicine in [address] [phone] Guicho Collier M.B., B.Ch. [address] [place] [phone] 08/09/2024 11:00 AM PHARMACY MANAGER Ancillary Procedure Department of Radiology, [facility], in [place], [place] [address] [facility] [address] [place] [phone] Guicho Collier M.B., B.Ch. [address] [place] [phone] 08/09/2024 12:00 PM PHARMACY MANAGER Ancillary Procedure Department of Radiology in the Breast Clinic, [facility] in [place], [place] [address] [place] [phone] Guicho Collier M.B., B.Ch. [address] [place] [phone] 08/16/2024 11:20 AM PHARMACY MANAGER Office Visit Department of Oncology in [address] [phone] Guicho Collier M.B., B.Ch. [address] [place] [phone] Health Maintenance Due Date Last Done Comments Bone Density Scan (Osteoporosis Screen) 1951 CT Colonography 1950 Cologuard 1950 Hepatitis C Screening 1950 COVID-19 Vaccine (#1) 1956 Zoster Vaccines (1 of 2) 1970 RSV vaccine - (32-36 weeks) or 60+ years (1 - Risk 60-74 years 1-dose series) 2011 Depression Screening (Annual PHQ-2) 09/01/2023 Fall Risk Screen (Annual) 09/01/2023 Influenza Vaccine (#1) 2024 10/14/2023 Tobacco Cessation counseling 05/21/2025 05/21/2024, 08/27/2023 Fasting Glucose for Diabetes Screening 01/06/2027 01/07/2024, 12/17/2023, 11/26/2023, Additional history exists Colonoscopy 06/16/2028 06/16/2023 Colorectal Cancer Surveillance 06/16/2028 DTaP,Tdap,and Td Vaccines (2 - Td or Tdap) 05/14/2032 05/14/2022 Mammogram Discontinued 06/06/2023, 05/06/2023 Pneumococcal vaccine (65+ years) Completed 03/18/2024 HPV Vaccines Aged Out No longer eligi ble based on patient's age to complete this topic Medical Devices Implanted Type Area Procedures Analyst Device Identifier Shelf Expiration Date Model / Serial / Lot Mrk Brst Biop Tmr [id number] - [id number] Implanted:Qty : 1 on 05/14/2023 at [facility] Imaging Marker Right: Breast [employer] 10/30/2028 [id number] / / [id number] Description:Hologic [place] V ision post biopsy marker placed by Dr Hackett 05/14/23 Right breast Procedures Procedure Name Priority Date/Time Associated Diagnosis Comments CARCINOEMBRYONIC AG (CEA), S Routine 05/17/2024 7:37 AM CDT Medication Therapy Half-Way Not Anticoagulant Malignant Neoplasm Of Overlapping Sites Of Right Female Breast (HCC) Malignant Neoplasm Of Colon (HCC) CBC WITH DIFFERENTIAL, B Routine 05/17/2024 7:37 AM CDT Medication Therapy Half-Way Not Anticoagulant Malignant Neoplasm Of Overlapping Sites Of Right Female Breast (HCC) Malignant Neoplasm Of Colon (HCC) COMPREHENSIVE METABOLIC PANEL, S/P Routine 01/07/2024 1:20 PM CDT Malignant Neoplasm Of Overlapping Sites Of Right Female Breast (HCC) Medication Therapy Half-Way Not Anticoagulant Encounter For Antineoplastic Chemotherapy Other Thrombocytosis Malignant Neoplasm Of Colon (HCC) MR BREAST BILATERAL WITHOUT AND WITH IV CONTRAST RAD - Routine (most inpatients and all outpatients) 06/06/2023 8:55 AM CDT Malignant Neoplasm Of Overlapping Sites Of Right Female Breast (HCC) from Last 3 Months or Most Recently Relevant to Health Maintenance Results * CBC with Differential, Blood (05/17/2024 7:37 AM CDT) Pathologist [facility] Hemoglobin 13.9 11.6 - 15.0 g/dL 05/17/2024 [...] - 0.08 x10(9)/L 05/17/2024 7:49 AM CDT [facility] Blood (Blood, Venous) 05/17/2024 7:37 AM CDT 05/17/2024 7:45 AM CDT Guicho Alfonso B.Ch. LAB BLOOD ADD-ON Performing Organization Address [facility] Co de Phone Number [facility] [address] [place] [address], [place] [address] * CEA (Carcinoembryonic Antigen) (05/17/2024 7:37 AM CDT) Carcinoembryonic Ag (CEA), S 24.2 ng/mL 05/17/2024 9:06 AM CDT TO Comment: Biotin has been identified by the gutter installer as a potential interfering substance. Higher concentrations [...] 7:37 AM CDT 05/17/2024 7:45 AM CDT Davide Tim.Ch. LAB BLOOD ADD-ON Performing Organization Address [facility]/ZIP Co de Phone Number [facility] [address] [place] [address], [facility] in [place] [address] [place] [address] * (ABNORMAL) Comprehensive Metabolic Panel (01/07/2024 1:20 PM CDT) Potassium, P 4.7 3.6 - 5.2 mmol/L 01/07/2024 9:13 PM CDT [facility] Sodium, P 141 135 - 145 mmol/L 01/07/2024 9:13 PM CDT [facility] Chloride, P 108(H) 98 - 107 mmol/L 01/07/2024 9:13 PM CDT [facility] Bicarbonate, P 23 22 - 29 mmol/L 01/07/2024 9:13 PM CDT [facility] Anion Gap, P 10 7 - 15 01/07/2024 9:13 PM CDT [facility] BUN (Blood Urea Nitrogen), P 6 6 - 21 mg/dL 01/07/2024 9:13 PM CDT [facility] Creatinine 0.70 0.59 - 1.04 mg/dL 01/07/2024 9:13 PM CDT [facility] Estimated GFR (eGFR) >90 >=60 mL/min/BS A 01/07/2024 9:13 PM CDT [facility] Comment: Estimated GFR calculated using the 2020 CKD_EPI creatinine equation. Calcium, Total, P 9.4 8.8 - 10.2 mg/dL 01/07/2024 9:13 PM CDT [facility] Glucose, P 84 70 - 140 mg/dL 01/07/2024 9:13 PM CDT [facility] Protein, Total, P 6.7 6.3 - 7.9 g/dL 01/07/2024 9:13 PM CDT [facility] Albumin, P 4.1 3.5 - 5.0 g/dL 01/07/2024 9:13 PM CDT [facility] Aspartate Aminotransferase (AST), P 23 8 - 43 U/L 01/07/2024 9:13 PM CDT [facility] Alkaline Phosphatase, P 126(H) 35 - 104 U/L 01/07/2024 9:13 PM CDT [facility] Alanine Aminotransferase (ALT), P 16 7 - 45 U/L 01/07/2024 9:13 PM CDT [facility] Bilirubin, Total, P 0.5 0.0 - 1.2 mg/dL 01/07/2024 9:13 PM CDT [facility] Blood (Blood, Venous) 01/07/2024 1:20 PM CDT 01/07/2024 8:49 PM CDT Guicho Alfonso B.Ch. LAB BLOOD ADD-ON [facility] [address] [place] [id number], [facility] in [place] [address] * (ABNORMAL) MR Breast Bilateral without and with IV Contrast (06/06/2023 8:55 AM CDT) Anatomical Region Laterality Modality Breast, Breast Imaging RST L OS, Breast Imaging ARZ LOS, Breast Imaging FLA LOS Bilateral Magnetic Resonance 06/06/2023 1:33 PM CDT Impressions 06/06/2023 3:15 PM CDT Biopsy-proven right breast carcinoma with areas of suspicious enhancement measuring up to 5.7 x 2.5 x 2.5 cm. The posterior margin of the mass less than 1 cm from the pectoralis musculature where there is a component of traction upon the muscle. Additional upper outer quadrant posterior depth satellite nodule versus 6 mm intramammary lymph node. No pathologic lymphadenopathy. RECOMMENDATION: ??Surgical Biopsy ASSESSMENT: ??BI-RADS: 6: Known Biopsy-Proven Malignancy. Narrative 06/06/2023 3:15 PM CDT EXAM: ??MR BREAST BILATERAL WITHOUT AND WITH IV CONTRAST INDICATION: ??Staging workup. HISTORY: ??Biopsy-proven right breast cancer favoring lobular carcinoma. HORMONAL STATUS: ??Postmenopausal. COMPARISON: ??Recent mammogram and ultrasound images reviewed. Chest CT imaging of May 02, 2023 and September 13, 2022 reviewed TECHNIQUE: ??Dynamic enhanced protocol using IV contrast administration with T1 and T2-weighted images and CAD image analysis. FIBROGLANDULAR TISSUE: ??b. Scattered fibroglandular tissue. ?? BACKGROUND PARENCHYMAL ENHANCEMENT: ??b. Mild FINDINGS: RIGHT BREAST: ??Biopsy-proven carcinoma involves a large portion of the central right breast with the region of suspicious postcontrast enhancement measuring up to 5.7 cm AP by 2.5 cm transverse by 2.5 cm AP dimension. This includes the enhancing satellite nodule anterior inferior to the dominant lesion. The posterior aspect of concerning enhancement is seen less than 1 cm (approximately 5-6 mm) from the pectoralis muscle where there is a traction component demonstrated. Within the posterior depth of the upper outer right breast there is an enhancing round 6 mm nodule (302/55; 304/88). This finding may represent intramammary lymph node or additional satellite lesion of the primary mass. There is retraction of the skin along the lateral breast extending from the periareolar region. No significant skin thickening or abnormal postcontrast enhancement. Asymmetric prominence of soft tissues extending to the periareolar region does not demonstrate concerning post contrast enhancement characteristics. RIGHT AXILLA: ??No right axillary lymphadenopathy. LEFT BREAST: ??No MRI findings of malignancy in the left breast. There are scattered areas of enhancing benign-appearing fibroglandular tissue. LEFT AXILLA: ??No left axillary lymphadenopathy. CHEST WALL: ??No internal mammary lymphadenopathy. ?? Procedure Note Tho Hackett M.D. - 06/06/2023 EXAM: MR BREAST BILATERAL WITHOUT AND WITH IV CONTRAST INDICATION: Staging workup. HISTORY: Biopsy-proven right breast cancer favoring lobular carcinoma. HORMONAL STATUS: Postmenopausal. COMPARISON: Recent mammogram and ultrasound images reviewed. Chest CTimaging of May 02, 2023 and September 13, 2022 reviewed TECHNIQUE: Dynamic enhanced protocol using IV contrast administrationwith T1 and T2-weighted images and CAD image analysis. FIBROGLANDULAR TISSUE: b. Scattered fibroglandular tissue. BACKGROUND PARENCHYMAL ENHANCEMENT: b. Mild FINDINGS: RIGHT BREAST: Biopsy-proven carcinoma involves a large portion of thecentral right breast with the region of suspicious postcontrast enhancement measuring up to 5.7 cm AP by2.5 cm transverse by 2.5 cm AP dimension. This includes the enhancing satellite nodule anteriorinferior to the dominant lesion. The posterior aspect of concerning enhancement is seen less than 1cm (approximately 5-6 mm) from the pectoralis muscle where there is a traction componentdemonstrated. Within the posterior depth of the upper outer right breast there is an enhancing round 6 mmnodule (302/55; 304/88). This finding may represent intramammary lymph node or additional satellitelesion of the primary mass. There is retraction of the skin along the lateral breast extending fromthe periareolar region. No significant skin thickening or abnormal postcontrast enhancement.Asymmetric prominence of soft tissues extending to the periareolar region does not demonstrateconcerning post contrast enhancement characteristics. RIGHT AXILLA: No right axillary lymphadenopathy. LEFT BREAST: No MRI findings of malignancy in the left breast. There arescattered areas of enhancing benign-appearing fibroglandular tissue. LEFT AXILLA: No left axillary lymphadenopathy. CHEST WALL: No internal mammary lymphadenopathy. IMPRESSION: Biopsy-proven right breast carcinoma with areas of suspicious enhancementmeasuring up to 5.7 x 2.5 x 2.5 cm. The posterior margin of the mass less than 1 cmfrom the pectoralis musculature where there is a component of traction upon the muscle.Additional upper outer quadrant posterior depth satellite nodule versus 6 mm intramammary lymph node. Nopathologic lymphadenopathy. RECOMMENDATION: Surgical Biopsy ASSESSMENT: BI-RADS: 6: Known Biopsy-Proven Malignancy. Jarad Laurent II, M.D. IMG MRI PROCE DURES from Last 3 Months or Most Recently Relevant to Health Maintenance Advance Directives For more information, please contact: [phone] * Full Code (Latest Code Status on File) Date Activated Date Inactivated Comments 08/12/2023 10:57 PM 08/18/2023 5:23 PM Question Answer Comments Full Code: Not Discussed Due to: Not medically appropriate * Full Code Date Activated Date Inactivated Comments 08/05/2023 8:12 AM 08/05/2023 4:25 PM Question Answer Comments Full Code: Discussed
--- OUTSIDE RECORDS SUMMARY | 2024-06-04 09:17 | XMS_ITS | Referral Summary ---
Author Organization [facility] Address [address] [place] [address] Care Team Providers Care Rn Ante Partum Name Role Phone Unavailable Primary Care Provider Unavailabl e Source Comments Patient records contain information from all sites at [facility]. For routine questions regarding patient records, call [phone] during business hours, M-F 8:00 AM - 5:00 PM Central Time. Record requests for emergency care only can be directed to [phone] at any time.[facility] Encounters Date Type Department Care Team Description 05/21/2024 10:30 AM CDT Virtual Visit Department of Medical Genetics in [place], [place] [address] [place] [address] Guicho Collier M.B., B.Ch. Kari Cowan Malignant Neoplasm Of Overlapping Sites Of Right Female Breast (HCC); Malignant Neoplasm Of Colon (HCC); Cancer Colon Nonpolyposis Hereditary Family History; High Risk Medication 05/19/2024 Clinical Communication Department of Medical Genetics in [place], [place] [address] [place] [address] Prescheduling, Provider 05/18/2024 Clinical Communication Department of Oncology in [place], [place] [address] [place] [phone] Guicho Collier M.B., B.Ch. 05/18/2024 Orders Only Department of Oncology in [address] [place] [phone] Guicho Collier M.B., B.Ch. Malignant Neoplasm Of Overlapping Sites Of Right Female Breast (HCC) (Primary Dx); Malignant Neoplasm Of Colon (HCC); Cancer Colon Nonpolyposis Hereditary Family History; High Risk Medication 05/17/2024 8:20 AM CDT Office Visit Department of Oncology in [address] [phone] Guicho Collier M.B., B.Ch. Malignant Neoplasm Of Colon (HCC) (Primary Dx); Medication Therapy [facility]iary Not Anticoagulant; Malignant Neoplasm Of Overlapping Sites Of Right Female Breast (HCC); Nicotine Dependence ; Screening Mammogram Breast Cancer; Cancer Colon Nonpolyposis Hereditary Family History; High Risk Medication 05/17/2024 7:20 AM CDT - 05/17/2024 11:59 PM CDT Hospital Encounter Department of Laboratory Medicine in [address] [phone] Guicho Collier M.B., B.Ch. Medication Therapy [facility]iary Not Anticoagulant; Malignant Neoplasm Of Overlapping Sites Of Right Female Breast (HCC); Malignant Neoplasm Of Colon (HCC) Discharge Disposition: Home or Self Care 05/16/2024 Refill Department of Oncology in [address] [phone] Guicho Collier M.B., B.Ch. Med Refill from Last 3 Months Allergies No known active allergies Medications Medication [...] Sites Of Right Female Breast (HCC),Medication Therapy [facility] Not Anticoagulant TAKE ONE TABLET BY MOUTH ONCE DAILY (SWALLOW WHOLE WITH A DRINK OF WATER) 90 tablet 1 4 Active anastrozole (ARIMIDEX) 1 mg tabletIndications:M alignant Neoplasm Of Overlapping Sites Of Right Female Breast (HCC),Medication Therapy Supervisor Tunnel Heading Not Anticoagulant Take 1 tablet (1 mg total) by mouth daily. Swallow whole with a drink of water. 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 on 09/17/2023 Social History Tobacco Use Types Packs/Day Years [...] living situation today? I have a [facility] place to live 05/25/2023 Education Answer Date Recorded What is the highest level of school you have completed or the highest degree you have received? GED or equivalent 05/2022 Sex and Gender Information Value Date Recorded Sex Assigned at Female 08/09/2022 8:38 AM PHYSICIAN INTERVENTIONAL CARDIOLOGIST Gender Identity Female 08/09/2022 8:38 AM PHYSICIAN INTERVENTIONAL CARDIOLOGIST Sexual Orientation Straight 08/09/2022 8: 38 AM PHYSICIAN INTERVENTIONAL CARDIOLOGIST Last Filed Vital Signs Vital Sign Reading [...] 162.6 cm (5' 4.02) 08/12/2023 10:[address] Body Mass Index 20.76 08/12/2023 10:45 PM PHYSICIAN INTERVENTIONAL CARDIOLOGIST Plan of Treatment Upcoming Encounters Date Type Department Care Team (Late st Contact Info) Description 08/09/2024 10:00 AM PHYSICIAN INTERVENTIONAL CARDIOLOGIST Appointment Department of Laboratory Medicine in [place], [place] [address] [place] [address] Guicho Collier M.B., B.Ch. [address] [place] [address] 08/09/2024 11:00 AM PHYSICIAN INTERVENTIONAL CARDIOLOGIST Ancillary Procedure Department of Radiology, [facility], in [place], [place] [address] [facility] [address] [place] [phone] Guicho Collier M.B., B.Ch. [address] [place] [phone] 08/09/2024 12:00 PM PHYSICIAN INTERVENTIONAL CARDIOLOGIST Ancillary Procedure Department of Radiology in the Breast Clinic, [facility] in [address] [phone] Guicho Collier M.B., B.Ch. [address] [place] [phone] 08/16/2024 11:20 AM PHYSICIAN INTERVENTIONAL CARDIOLOGIST Office Visit Department of Oncology in [address] [phone] Guicho Collier M.B., B.Ch. [address] [place] [phone] Medical Devices Implanted Type Area Finish Filer Device Identifier Shelf Expiration Date Model / Serial / Lot Mrk Brst Biop Tmr [id number] - [id number] Implanted:Qty : 1 on 05/14/2023 at [facility] Imaging Marker Right: Breast [employer] 10/30/2028 [id number] -[id number] / / [id number] Description:Hologic Tumark V ision post biopsy marker placed by Dr Hackett 05/14/23 Right breast Procedures Procedure Name Priority Date/Time Associated Diagnosis Comments CARCINOEMBRYONIC AG (CEA), S Routine 05/17/2024 7:37 AM CDT Medication Therapy [facility] Not Anticoagulant Malignant Neoplasm Of Overlapping Sites Of Right Female Breast (HCC) Malignant Neoplasm Of Colon (HCC) CBC WITH DIFFERENTIAL, B Routine 05/17/2024 7:37 AM CDT Medication Therapy [facility] Not Anticoagulant Malignant Neoplasm Of Overlapping Sites Of Right Female Breast (HCC) Malignant Neoplasm Of Colon (HCC) COMPREHENSIVE METABOLIC PANEL, S/P Routine 01/07/2024 1:20 PM CDT Malignant Neoplasm Of Overlapping Sites Of Right Female Breast (HCC) Medication Therapy Supervisor Tunnel Heading Not Anticoagulant Encounter For Antineoplastic Chemotherapy Other [...] Differential, Blood (05/17/2024 7:37 AM CDT) Pathologist [facility] Hemoglobin 13.9 11.6 - 15.0 g/dL 05/17/2024 [...] 7:37 AM CDT 05/17/2024 7:45 AM CDT Giucho Alfonso B.Ch. LAB BLOOD ADD-ON [facility] [address] [place] [address] * CEA (Carcinoembryonic Antigen) (05/17/2024 7:37 AM CDT) Carcinoembryonic Ag (CEA), S 24.2 ng/mL 05/17/2024 9:06 AM CDT [facility] Comment: Biotin has been identified by the photographer apprentice as a potential interfering substance. Higher concentrations [...] AM CDT Davide Tim.Ch. LAB BLOOD ADD-ON [facility] [address] [place] [address] * (ABNORMAL) Comprehensive Metabolic Panel (01/07/2024 1:20 [...] 1:20 PM CDT 01/07/2024 8:49 PM CDT Carrington TimCh. LAB BLOOD ADD-ON [facility] [address] [place] [address], [facility] in [address] [address] * (ABNORMAL) MR Breast Bilateral without and [...] Advance Directives For more information, please contact: [phone] * Full Code (Latest Code Status on File) Date Activated Date Inactivated Comments 08/12/2023 10:57 PM 08/18/2023 5:23 PM Question Answer Comments Full Code: Not Discussed Due to: Not medically appropriate * Full Code Date Activated Date Inactivated Comments 08/05/2023 8:12 AM 08/05/2023 4:25 PM Question Answer Comments Full Code: Discussed
--- OUTSIDE RECORDS SUMMARY | 2024-06-04 09:17 | XMS_ITS | Encounter Summary ---
Author Organization [facility] Address [address] [place] [address] Care Team Providers Care Commercial Sales Director Name Role Phone Unavailable Primary Care Provider Unavailabl e Encounter Details Date Type Department Care Team (Late st Contact Info) Description 05/18/2024 Clinical Communication Department of Oncology in [address] [phone] Guicho Collier M.B., B.Ch. [address] [place] [phone] Social History Tobacco Use Types Packs/Day Years [...] your living situation today? I have a [facility] place to live 05/25/2023 Education Answer Date Recorded What is the highest level of school you have completed or the highest degree you have received? GED or equivalent 05/2022 Sex and Gender Information Value Date Recorded Sex Assigned at Female 08/09/2022 8:38 AM BREWERY WORKER Gender Identity Female 08/09/2022 8:38 AM BREWERY WORKER Sexual Orientation Straight 08/09/2022 8: 38 AM BREWERY WORKER documented as of this encounter Plan of Treatment Upcoming Encounters Date Type Department Care Team (Late st Contact Info) Description 08/09/2024 10:00 AM BREWERY WORKER Appointment Department of Laboratory Medicine in [place], [place] [address] [place] [phone] Guicho Collier M.B., B.Ch. [address] [place] [phone] 08/09/2024 11:00 AM BREWERY WORKER Ancillary Procedure Department of Radiology, [facility], in [place], [place] [address] [facility] [address] [place] [phone] Guicho Collier M.B., B.Ch. [address] [place] [phone] 08/09/2024 12:00 PM BREWERY WORKER Ancillary Procedure Department of Radiology in the Breast Clinic, [facility] in [place], [place] [address] [place] [address] Guicho Collier M.B., B.Ch. [address] [place] [phone] 08/16/2024 11:20 AM BREWERY WORKER Office Visit Department of Oncology in [place], [place] [address] [place] [phone] Guicho Collier M.B., B.Ch. [address] [place] [phone] documented as of this encounter Visit Diagnoses Not on filedocumented in this encounter
--- OUTSIDE RECORDS SUMMARY | 2024-06-04 09:17 | XMS_ITS | Encounter Summary ---
Author Organization [facility] Address [address] [place] [address] Care Team Providers Care Bank Officer Name Role Phone Unavailable Primary Care Provider Unavailabl e Encounter Details Date Type Department Care Team (Late st Contact Info) Description 05/19/2024 Clinical Communication Department of Medical Genetics in [place], [place] [address] [place] [address] Prescheduling, Provider Social History Tobacco Use Types Packs/Day Years [...] living situation today? I have a [facility] place to live 05/25/2023 Education Answer Date Recorded What is the highest level of school you have completed or the highest degree you have received? GED or equivalent 05/2022 Sex and Gender Information Value Date Recorded Sex Assigned at Female 08/09/2022 8:38 AM CHIEF LIBRARIAN EXTENSION DEPARTMENT Gender Identity Female 08/09/2022 8:38 AM CHIEF LIBRARIAN EXTENSION DEPARTMENT Sexual Orientation Straight 08/09/2022 8: 38 AM CHIEF LIBRARIAN EXTENSION DEPARTMENT documented as of this encounter Plan of Treatment Upcoming Encounters Date Type Department Care Team (Late st Contact Info) Description 08/09/2024 10:00 AM CHIEF LIBRARIAN EXTENSION DEPARTMENT Appointment Department of Laboratory Medicine in [address] [phone] Guicho Collier M.B., B.Ch. [address] [place] [phone] 08/09/2024 11:00 AM CHIEF LIBRARIAN EXTENSION DEPARTMENT Ancillary Procedure Department of Radiology, [facility], in [place], [place] [address] [place] [phone] Guicho Collier M.B., B.Ch. [address] [place] [phone] 08/09/2024 12:00 PM CHIEF LIBRARIAN EXTENSION DEPARTMENT Ancillary Procedure Department of Radiology in the Breast Clinic, [facility] in [place], [place] [address] [place] [address] Guicho Collier M.B., B.Ch. [address] [place] [phone] 08/16/2024 11:20 AM CHIEF LIBRARIAN EXTENSION DEPARTMENT Office Visit Department of Oncology in [address] [phone] Guicho Collier M.B., B.Ch. [address] [place] [phone] documented as of this encounter Visit Diagnoses Not on filedocumented in this encounter
--- OUTSIDE RECORDS SUMMARY | 2024-06-04 09:17 | XMS_ITS ---
Author Organization [facility] Address [address] [place] [address] Care Team Providers Care Table Tender Sludge Name Role Phone Unavailable Unavailable Unavailable Surgery Details Not on file Complications Check Surgery Details section. Procedure Estimated Blood Loss Check Surgery Details section. Procedure Findings Check Surgery Details section. Procedure Specimens Taken Check Surgery Details section.
--- OUTSIDE RECORDS SUMMARY | 2024-06-04 09:17 | XMS_ITS | Encounter Summary ---
Author Organization [facility] Address [address] [place] [address] Care Team Providers Care Import Coordination And Production Head Name Role Phone Unavailable Primary Care Provider Unavailabl e Reason for Visit * Outpatient (Routine) - Authorized Specialty Diagnoses / Procedures Referred By Ted tai Referred To Contact Clinical Genomics Diagnoses Malignant Neoplasm Of Overlapping Sites Of Right Female Breast (HCC) Malignant Neoplasm Of Colon (HCC) Cancer Colon Nonpolyposis Hereditary Family History High Risk Medication Guicho Collier M.B., B.Ch. [address] [place] [phone] [facility] Referral ID Status Reason Start Date Expiration Date V isits Requested Visits Authorized [id number] Authorized 05/18/2024 11/17/2025 1 1 Encounter Details Date Type Department Care Team (Latest Contact Info) Description 05/21/2024 10:30 AM CDT Virtual Visit Department of Medical Genetics in [place], [place] [address] [place] [address] Guicho Collier M.B., B.Ch. [address] [place] [phone] Kari Cowan Malignant Neoplasm Of Overlapping Sites [...] your living situation today? I have a [facility] place to live 05/25/2023 Education Answer Date Recorded What is the highest level of school you have completed or the highest degree you have received? GED or equivalent 05/2022 Sex and Gender Information Value Date Recorded Sex Assigned at Female 08/09/2022 8:38 AM PHARMACY TECHNICIAN PER DIEM Gender Identity Female 08/09/2022 8:38 AM PHARMACY TECHNICIAN PER DIEM Sexual Orientation Straight 08/09/2022 8: 38 AM PHARMACY TECHNICIAN PER DIEM documented as of this encounter Progress Notes * Kari Cowan - 05/21/2024 10:30 AM CDT Images from the original note were not included. REFERRAL Kaden Sumner, B.Ch. CHIEF COMPLAINT/PURPOSE OF VISIT Obtain and construct family history for clinical assessment. HISTORY OF PRESENT ILLNESS Please see Marisel Hernandez APRN, C.N.P, Malathi, M.S's Clinical Genomics consultation for further details. FAMILY HISTORY Per the referral of Kaden Sumner, B.Ch., a comprehensive family history was obtained and constructed for the Clinical Genomics consult. The complete family history has been saved in the patient'schart and is available for viewing. The patient will be seen in Clinical Genomics by Marisel Floyd C.N.P, Malathi, M.S. Please see the consult note regarding pertinent findings of the family hist ory in relation to the differential diagnosis and clinical assessment. Pedigree Image Total time: 17 minutes documented in this encounter Plan of Treatment Upcoming Encounters Date Type Department Care Team (Late st Contact Info) Description 08/09/2024 10:00 AM PHARMACY TECHNICIAN PER DIEM Appointment Department of Laboratory Medicine in [place], [place] [address] [place] [phone] Guicho Collier M.B., B.Ch. [address] [place] [phone] 08/09/2024 11:00 AM PHARMACY TECHNICIAN PER DIEM Ancillary Procedure Department of Radiology, [facility], in [place], [place] [address] [facility] [address] [place] [phone] Guicho Collier M.B., B.Ch. [facility] [place] [phone] 08/09/2024 12:00 PM PHARMACY TECHNICIAN PER DIEM Ancillary Procedure Department of Radiology in the Breast Clinic, [facility] in [place], [place] [address] [place] [address] Guicho Collier M.B., B.Ch. [address] [place] [phone] 08/16/2024 11:20 AM PHARMACY TECHNICIAN PER DIEM Office Visit Department of Oncology in [address] [phone] Guicho Collier M.B., B.Ch. [address] [place] [phone] documented as of this encounter Visit Diagnoses Diagnosis Malignant Neoplasm Of Overlapping Sites Of Right Female Breast (HCC) Malignant Neoplasm Of Colon (HCC) Cancer Colon Nonpolyposis Hereditary Family History High Risk Medication documented in this encounter
--- OUTSIDE RECORDS SUMMARY | 2024-06-04 09:17 | XMS_ITS | Clinical Summary ---
Author Organization [facility] Address [place], [place] [address] Care Team Providers Care Surfacer Name Role Phone DarianteJunior ryan MD Primary Care Provider + Allergies No known active allergies Medications Medication Sig Dispensed Refills Start Date End Date Status albuterol HFA (ProAir HFA) 90 mcg/actuation inhalerIndications: Chronic obstructive pulmonary disease, unspecified COPD type (HC) Inhale 1-2 Puffs by mouth every 4 hours while awake. 1 Each 2 03/26/2023 Active alendronate (FOSAMAX) 70 mg tabletIndications:O steoporosis, unspecified osteoporosis type, unspecified pathological fracture presence TAKE ONE TABLET BY MOUTH FIRST THING IN THE MORNING ONCE WEEKLY WITH A FULL GLASS OF WATER - DO NOT EAT, DRINK OR LIE DOWN FOR 60 MINUTES AFTER TAKING 13 Tablet 3 06/23/2023 Active ondansetron (ZOFRAN ODT) 4 mg disintegrating tablet DISSOLVE ONE TABLET BY MOUTH EVERY 8 HOURS NEEDED FOR NAUSEA OR VOMITING 08/05/2023 Active anastrozole (ARIMIDEX) 1 mg tablet Take 1 mg by mouth. 01/14/2024 Active amLODIPine (NORVASC) 5 mg tabletIndications:H TN (hypertension) Take 1 Tablet (5 mg) by mouth once daily. 90 Tablet 3 03/18/2024 Active apixaban (Eliquis) 5 mg tabletIndications:C erebrovascular accident (CVA), unspecified mechanism (HC) Take 1 Tablet (5 mg) by mouth two times daily. 180 Tablet 3 03/18/2024 Active atorvastatin (LIPITOR) 40 mg tabletIndications:D yslipidemia, goal LDL below 70 Take 1 Tablet (40 mg) by mouth at bedtime. 90 Tablet 3 03/18/2024 Active polyethylene glycol-electrolyte (GOLYTELY) 236-22.74-6.74 -5.86 gram suspensionIndicatio ns:Malignant neoplasm of transverse colon (HC) Drink 2 liters the day before colonoscopy and 2 liters 6 hours before colonoscopy appointment 4000 mL 05/24/2024 Active nicotine 21 mg/24 hr (NICODERM; HABITROL) 21 mg/24 hr patchIndications:To bacco use Apply 1 Patch on dry, clean, hairless skin once daily. 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 CVA (cerebral vascular accident) 09/01/2013 Overview (08/19/2018): no residual defect HTN (hypertension) Dyslipidemia, goal LDL below 70 Breast cancer Overview (05/19/2024): 2022, right breast, Resolved Problems Problem Noted Date Diagnosed Date Resolved Date COPD exacerbation 08/19/2018 05/14/2022 Anticoagulation monitoring, INR range 2-3 [Z79.01] 08/19/2018 05/14/2022 Encounters Date Type Department Care Team Description 05/26/2024 Telephone [facility] [address] [place] [address] [place]ot[place], Junior Ventura MD 05/20/2024 Orders Only [facility] [address] [place] [address] Junior Carlton MD <No scans attached> 05/19/2024 10:00 AM CDT Office Visit [facility] [address] [facility] [address] Junior Carlton MD Preoperative Exam (06/04/24, [place], Dr. Bee, colonoscopy) 05/19/2024 Travel 04/20/[address] [address] Junior Carlton MD Results 04/19/2024 9:45 AM CDT Orders Only [address] [place] [address] Lab, [facility] 04/19/2024 Travel 03/18/2024 10:50 AM CDT Office Visit [facility] [address] [place] [address] Junior Carlton MD Medication Management 03/18/2024 Telephone [facility] [address] [place] [address] Stefano Bee MD Pre Procedure 03/18/2024 Travel 03/15/2024 Telephone [facility] [address] [place] [address] Junior Carlton MD Error-please disregard from Last 3 Months Immunizations Name Administration Dates Next Due Influenza, Inactivated AIIV4 (Age 65+ Years) Preserv Free 10/14/2023 Pneumococcal Conj 20-valent (Prevnar 20) 024 Tdap 05/14/2022 Social History Tobacco Use Types Packs/Day Years Used Date Smoking Tobacco: Every Day Cigarettes 1 45 Smokeless Tobacco: Never Tobacco Cessation:Ready to Q uit: No; Counseling Given: Yes Alcohol Use Standard Drinks/Week Comments Yes 0 (1 standard drink = 0.6 oz pur e alcohol) occ PHQ-2 Answer Date Recorded PHQ-2 TOTAL SCORE 0 03/18/2024 Social Connections Answer Date Recorded Frequency of Communication with Friends and Fami ly 0 03/18/2024 Financial Resource Strain Answer Date R ecorded Difficulty of Paying Living Expenses 3 03/18/2024 Difficulty of Paying Living Expenses Not on file 03/18/2024 Food Insecurity Answer Date Recorded Worried About Running Out of Food in the Last Ye ar 1 03/18/2024 Transportation Needs Answer Date Record ed Lack of Transportation (Medical) 1 03/18/2024 Housing Stability Answer Date Recorded Unable to Pay for Housing in the Last Year 1 03/18/2024 Sex and Gender Information Value Date Recorded Sex Assigned at Not on file Gender Identity Not on file Sexual Orientation Not on file Obstetrics History Last Filed Vital Signs Vital Sign Reading Time Taken Comments Blood Pressure 137/69 05/19/2024 9:54 AM CDT Pulse 75 05/19/2024 9:54 AM CDT Temperature 36.8 ??C (98.2 ??F) 05/19/2024 9:54 AM CD T Respiratory Rate - - Oxygen Saturation 97% 05/19/2024 9:54 AM CDT Inhaled Oxygen Concentration - - Weight 55 kg (121 lb 3.2 oz) 05/19/2024 9:54 AM CDT Height 161.5 cm (5' 3.6) 05/19/2024 9:54 AM CDT Body Mass Index 21.07 05/19/2024 9:54 AM CDT Plan of Treatment Upcoming Encounters Date Type Department Care Team (Late st Contact Info) Description 07/21/2024 10:00 AM CHILD AND FAMILY SERVICES SPECIALIST Orders Only [facility] [address] [place] [address] Lab, [facility] Health Maintenance Due Date Last Done Comments COVID-19 vaccine series (#1) 1956 Hepatitis C screening for ag e 18-79 1969 Zoster (shingles) series for age 50+ (1 of 2) [address] (for lung CA) ag e 50-80 2001 Influenza for age 65+ 05/02/2024 10/14/2023 Mammogram for age 45-75 05/02/2024 05/02/20 23 (Completed outside of [facility]) Medicare Wellness for age 65+ 10/14/2024, 2022 (Completed outside of [facility]) Depression screening for age 12+ 03/18/2025 03/18/2024, 10/15/2023, 10/15/2023, Additional history exists BMI (ht and wt on same day) for age 18+ 05/19/2025 05/19/2024, 03/18/2024, 10/14/2023, Additional history exists Lipids for age 45-75 03/18/2029 03/18/2024, 03/26/2023, 06/11/2022, Additional history exists Tetanus booster 05/14/2032 05/14/2022 Colonoscopy through age 75 06/16/203306/04, 06/16/2023, 06/16/2023, Additional history exists Tdap Completed 05/14/2022 DEXA/DXA scan for age 65+ Completed 2021, 10/31/2020 [facility] Pneumococcal series for age 65+ Completed Procedures Procedure Name Priority Date/Time Associated Diagnosis Comments COLONOSCOPY SCREENING Routine 06/04/2024 8:02 AM CDT Malignant neoplasm of transverse colon (HC) BASIC METABOLIC PANEL Routine 05/20/2024 9:38 AM CDT Pre-op exam POTASSIUM Routine 04/19/2024 9:48 AM CDT HTN (hypertension) LIPID PANEL W REFLEX MEASURED LDL Routine 03/18/2024 12:22 PM CDT Dyslipidemia, goal LDL below 70 XR DXA BONE DENSITY 2 SITES AXIAL Routine 06/18/2022 9:24 AM CDT Menopause from Last 3 Months or Most Recently Relevant to Health Maintenance Results * BASIC METABOLIC PANEL (05/20/2024 9:38 AM CDT) GLUCOSE 87 65 - 99 mg/dL [facility] Comment: ? Fasting reference interval UREA NITROGEN (BUN) 7 7 - 25 mg/dL [facility] CREATININE 0.73 0.60 - 1.00 mg/dL [facility] EGFR 87 > OR = 60 mL/min/1. 73m2 [facility] BUN/CREATININE RATIO SEE NOTE: 6 - 22 (calc) [facility] Comment: ?? Not Reported: BUN and Creatinine are within ?? reference range. ? SODIUM 140 135 - 146 mmol/L [facility] POTASSIUM 4.1 3.5 - 5.3 mmol/L [facility] CHLORIDE 105 98 - 110 mmol/L [facility] CARBON DIOXIDE 26 20 - 32 mmol/L [facility] ELECTROLYTE BALANCE 9 7 - 17 mmol/L (calc) [facility] CALCIUM 9.6 8.6 - 10.4 mg/dL [facility] Blood BLOOD SPECIMEN / Unknown 05/20/2024 9:38 AM CDT 05/20/2024 9:39 AM CDT Junior Carlton MD CHEMISTRY [facility] [address] [place] [phone], [address] [phone] * POTASSIUM (04/19/2024 9:48 AM CDT) POTASSIUM 3.6 3.5 - 5.1 mmol/L 04/19/2024 4:57 PM CDT [facility] Blood BLOOD SPECIMEN / Unknown Butterfly / Unknown 04/19/2024 9:48 AM CDT 04/19/2024 9:48 AM CDT Junior Carlton MD CHEMISTRY [facility] [address] [place] [address], * LIPID PANEL W REFLEX MEASURED LDL (03/18/2024 12:22 PM CDT) CHOLESTEROL,TOTAL 154 100 - 199 mg/dL 03/19/2024 8:36 AM CDT [facility] Comment: Cholesterol, Total Reference Ranges Desirable <200 mg/dL Borderline 200-239 mg/dL High >=240 mg/dL TRIGLYCERIDES 93 <150 mg/dL 03/19/2024 8:36 AM CDT [facility] HDL CHOLESTEROL 55 >40 mg/dL 8:36 AM CDT [facility] NON-HDL CHOLESTEROL 99 <145 mg/dl 03/19/2024 8:36 AM CDT [facility] CHOL/HDL RATIO 2.80 <4.50 03/19/2024 8:36 AM CDT [facility] LDL CHOLESTEROL 80 <=130 mg/dL 03/19/2024 8:36 AM CDT [facility] VLDL CHOLESTEROL 19 <=30 mg/dL 03/19/2024 8:36 AM CDT [facility] PROVIDER ORDERED STATUS RANDOM 03/19/2024 8:36 AM CDT [facility] Blood BLOOD SPECIMEN / Unknown Venipuncture / Unknown 03/18/2024 12:22 PM CDT 03/18/2024 12:22 PM CDT Junior Carlton MD [facility] [address] [place] [address], * COLONOSCOPY DIAGNOSTIC (06/16/2023 12:00 AM CDT) Junior Carlton MD GI PROCEDURE ORD * (ABNORMAL) XR DXA BONE DENSITY 2 SITES AXIAL (06/18/2022 9:24 AM CDT) Anatomical Region Laterality Modality Spine, HIPS, HIPL, HIPR Other Impressions 06/25/2022 3:53 PM CDT Osteoporosis. RECOMMENDATIONS: The National Osteoporosis Foundation recommends pharmacologic treatment for patients with T-scores of -2.5 or less, patients with prior history of fragility fractures, or patients with 10-year probability of greater than 3% at hips or greater than 20% of suffering major osteoporotic fractures. Recommend continued optimization of calcium and vitamin D intake through dietary means and/or supplementation and regular exercise. Consider pharmacologic therapy for osteoporosis. Follow-up bone density reading in 2 years if therapy initiated to assess therapeutic efficacy. Cathy Clancy PA-C [facility] 06/25/2022 Narrative 06/25/2022 3:53 PM CDT For Patients: Results are automatically released to your [facility] (Snapsheet) account once available, in compliance with federal regulations. This means that you may see your results before your provider has had a chance to review them. Please allow 2-3 business days for your provider to comment on the results. XR DXA Bone Mineral Density (BMD) EXAM LOCATION: [facility] [address] [facility] [address] PATIENT NAME: Valentine Hernandez DATE OF : 1950 EXAM DATE: 06/18/2022 REQUESTING PROVIDER: Junior Carlton MD GENDER AT : female HEIGHT: 5' 2.5 (06/11/2022) WEIGHT: ??140 lb 3.2 oz (06/11/2022) MENOPAUSAL STATUS: Postmenopausal RACE/ETHNICITY: White RISK FACTORS: Family History of Osteoporosis, Smoking (current) and White Race CURRENT MEDICATION FOR BONE LOSS: NONE INDICATION: Menopause COMPARISON DATE(S): None DXA scans are compared to prior studies for a patient only when the two (or more) studies were performed on the same scanner. It is not possible to compare data generated on one scanner to data from another because there are not standards in DXA equipment. This applies even if the two scanners are made by the same creative producer. PROCEDURE: Dual-energy x-ray absorptiometry performed with routine technique. Reporting is completed in the form of a T-score. The T-score represents the standard deviation from peak bone mass based on young healthy adult. A Z-score is used for diagnosis in premenopausal women, and for men under the age of 50. FINDINGS: RESULT LUMBAR SPINE L1 - L4 BMD: 0.832 g/cm2 T-Score: - 2.9 Z-Score: - 1.2 Change from prior: ??None RESULTS FEMUR Left femoral neck BMD: 0.730 g/cm2 T-Score: - 2.2 Z-Score: - 0.4 Change from prior: ??None Right femoral neck BMD: 0.801 g/cm2 T-Score: - 1.7 Z-Score: + 0.1 Change from prior: ??None Left hip BMD: 0.785 g/cm2 T-Score: - 1.8 Z-Score: - 0.2 Change from prior: ??None Right hip BMD: 0.813 g/cm2 T-Score: - 1.5 Z-Score: + 0.0 Change from prior: ??None WHO criteria: Normal: T-score at or above -1 SD Osteopenia: T-score between -1.1 and -2.4 SD Osteoporosis: T-score at or below -2.5 SD FRAX RISK CALCULATION (USED FOR OSTEOPENIA ONLY): 10-year probability of major osteoporotic fracture: 14.5%. 10-year probability of hip fracture: 5.2%. Junior Carlton MD DEXA from Last 3 Months or Most Recently Relevant to Health Maintenance Care Teams Surfacer Relationship Specialty Start Date End Date Junior Carlton MD [address] [place] [address] PCP - General Family Practice 05/14/22
--- OUTSIDE RECORDS SUMMARY | 2024-06-04 09:17 | XMS_ITS | Encounter Summary ---
Author Organization [facility] Address [address] [place] [address] Care Team Providers Care Solar Photovoltaic Systems Engineer Name Role Phone Unavailable Primary Care Provider Unavailabl e Reason for Visit * Reason Comments Med Refill Encounter Details Date Type Department Care Team (Late st Contact Info) Description 05/16/2024 Refill Department of Oncology in [place], [place] [address] [place] [phone] Guicho Collier M.B., B.Ch. [address] [place] [phone] Med Refill Social History Tobacco Use Types Packs/Day Years Used Date Smoking Tobacco: Every Day Cigarettes Passive Smoke Exposure: Current Smokeless Tobacco: Never [...] your living situation today? I [facility] place to live 05/25/2023 Education Answer Date Recorded What is the highest level of school you have completed or the highest degree you have received? GED or equivalent 05/2022 Sex and Gender Information Value Date Recorded Sex Assigned at Female 08/09/2022 8:38 AM SENIOR JAVA PROGRAMMER ANALYST Gender Identity Female 08/09/2022 8:38 AM SENIOR JAVA PROGRAMMER ANALYST Sexual Orientation Straight 08/09/2022 8: 38 AM SENIOR JAVA PROGRAMMER ANALYST documented as of this encounter Plan of Treatment Upcoming Encounters Date Type Department Care Team (Late st Contact Info) Description 08/09/2024 10:00 AM SENIOR JAVA PROGRAMMER ANALYST Appointment Department of Laboratory Medicine in [place], [place] [address] [place] [phone] Guicho Collier M.B., B.Ch. [address] [place] [phone] 08/09/2024 11:00 AM SENIOR JAVA PROGRAMMER ANALYST Ancillary Procedure Department of Radiology, [facility], in [place], [place] [address] [facility] [address] [place] [phone] Guicho Collier M.B., B.Ch. [address] [place] [phone] 08/09/2024 12:00 PM SENIOR JAVA PROGRAMMER ANALYST Ancillary Procedure Department of Radiology in the Breast Clinic, [facility] in [place], [place] [address] [place] [address] Guicho Collier M.B., B.Ch. [address] [place] [phone] 08/16/2024 11:20 AM SENIOR JAVA PROGRAMMER ANALYST Office Visit Department of Oncology in [place], [place] [address] [place] [phone] Guicho Collier M.B., B.Ch. [address] [place] [phone] documented as of this encounter Visit Diagnoses Diagnosis Malignant Neoplasm Of Overlapping Sites Of Right Female Breast (HCC) Medication Therapy Alf Not Anticoagulant documented in this encounter
--- OUTSIDE RECORDS SUMMARY | 2024-06-04 09:17 | XMS_ITS ---
Author Organization [facility] Address [address] [place] [address] Care Team Providers Care Brazer Induction Name Role Phone Unavailable Primary Care Provider Unavailabl e Genomics Program Status:Identified (Enrolling) Start date:05/18/2024 Continued Care and Services Coordination
--- NOTE | 2024-06-04 11:04 | W.ANESCHARGE ---
Anesthesia Charges Start Date/Time Anesthesia Start Date: 06/04/24 Anesthesia Start Time: 10:33 Stop Date/Time Anesthesia Stop Date: 06/04/24 Anesthesia Stop Time: 11:00
--- NOTE | 2024-06-04 11:21 | W.ANESCHARGE ---
Anesthesia Charges Start Date/Time Anesthesia Start Date: 06/04/24 Anesthesia Start Time: 10:33 Stop Date/Time Anesthesia Stop Date: 06/04/24 Anesthesia Stop Time: 11:00 Summary Extremes of Age - Over 70 or under 1: MDA
== END 2024-06-04 09:14 | disposition home or self-care (01) ==
LOC: OP CLINIC 09:14
PROVIDERS: PCP Family Medicine; Visit Provider Internal Medicine Gastroenterology
DX: Z85.038 Personal history of other malignant neoplasm of large intestine (principal); K57.30 Diverticulosis of large intestine without perforation or abscess without bleeding; Z15.09 Genetic susceptibility to other malignant neoplasm; Z98.0 Intestinal bypass and anastomosis status
CPT/HCPCS: 00811; 00812; 45378; 99100; J2704